=== PATIENT | male | born 1995 | race African-American/Black ===

== ENCOUNTER → 2018-08-05 | Outpatient (CLI) | payer OTHER ==
[~2018-08-05] MED LIST: CONRAY-43 43% 50ML VIAL (Q9960) As Ordered; LIDOCAINE 1% MDV 20ML VIAL As Ordered; TRIAMCINOLONE ACETONIDE SUSP 40 MG/ML VIAL (J3301) As Ordered
== END ==
LOC: M RADPRO 10:38
DX: M25.552 Pain in left hip (principal)
CPT/HCPCS: 20610

== ENCOUNTER 2020-01-07 23:06 | Emergency (ER) | payer OTHER, SELFPAY ==
[~2020-01-07] VITALS: Ht 180.3 cm; Wt 76.7 kg
[2020-01-07 23:07] VITALS: BP 124/69
[2020-01-08 03:22] LABS: CHLAMYDIA DNA AMPLIFICATION NEGATIVE (NEGATIVE); GC DNA AMPLIFICATION NEGATIVE (NEGATIVE)
== END 2020-01-08 02:17 | disposition home or self-care (01) ==
LOC: M ED 23:06
DX: N50.89 Other specified disorders of the male genital organs (principal)